=== PATIENT | male | born 1975 | race Caucasian/White ===

== ENCOUNTER 2020-10-17 07:20 | Outpatient (CLI) | payer MEDICARE, MEDICAID, SELFPAY | END 2020-10-17 07:21 | disposition home or self-care (01) | DX: H90.3 Sensorineural hearing loss, bilateral (principal) | CPT/HCPCS: 92557; 92567 ==

== ENCOUNTER 2021-10-22 09:08 | Outpatient (CLI) | payer MEDICARE, MEDICAID, SELFPAY | END 2021-10-22 09:09 | disposition home or self-care (01) | LOC: ANHAUDIO 09:09 | PROVIDERS: Visit Provider Family Medicine | DX: H91.93 Unspecified hearing loss, bilateral (principal) | CPT/HCPCS: 99199 ==

== ENCOUNTER 2021-11-28 10:42 | Outpatient (CLI) | payer MEDICARE, MEDICAID, SELFPAY | END 2021-11-28 10:43 | disposition home or self-care (01) | LOC: ANHAUDIO 10:42 | PROVIDERS: Visit Provider Family Medicine | DX: H91.93 Unspecified hearing loss, bilateral (principal) | CPT/HCPCS: 92557; 92567 ==

== ENCOUNTER 2022-12-08 08:01 | Outpatient (CLI) | payer MEDICARE, MEDICAID, SELFPAY | END 2022-12-08 08:02 | disposition home or self-care (01) | LOC: ANHAUDIO 08:02 | PROVIDERS: PCP Family Medicine; Visit Provider Family Medicine | DX: H90.3 Sensorineural hearing loss, bilateral (principal) | CPT/HCPCS: 92557; 92567 ==

== ENCOUNTER 2023-12-10 08:09 | Outpatient (CLI) | payer MEDICARE, MEDICAID, SELFPAY | END 2023-12-10 08:10 | disposition home or self-care (01) | LOC: ANHAUDIO 08:09 | PROVIDERS: PCP Family Medicine; Visit Provider Family Medicine | DX: H90.3 Sensorineural hearing loss, bilateral (principal) | CPT/HCPCS: 92557; 92567 ==

== ENCOUNTER 2025-01-02 09:03 | Outpatient (CLI) | payer MEDICARE, MEDICAID, SELFPAY ==
--- OUTSIDE RECORDS SUMMARY | 2025-01-02 09:16 | XMS_ITS | Clinical Summary ---
Author Organization [facility] Address [address] [address] Care Team Providers Care Insurance Coordinator Name Role Phone Venkatesh Camargo MD Primary Care Provider [phone] Source Comments [facility],non-owned Affiliates and Associated Physician Practices is amultiple site organization consisting of ambulatory clinics and hospital sitesin [place], [place], [place] and [place]. This disclosure is being madepursuant to the Care Everywhere program and may not contain all information available regarding this patient. Last updated 18.[facility] Allergies Active Allergy Reactions Criticality Noted Date Comments Sulfa Drugs Urticaria Medium 04/23/2010 Sulfamethoxazole W-Trimethoprim Urticaria Medium 04/01 Tuberculin Unknown 01/14/2018 Medications * Be aware that medications may not be up to date on this document. Alwaysverify current medications with the patient. metoprolol succinate XL 24hr (TOPROL XL) 100 MG tablet Take 2 (two) tablets by mouth once daily 03/10/20 11 Active risperiDONE (RISPERDAL) 0.5 MG tablet Take 1 (one) tablet by mouth 2 times daily Active fluticasone propionate (FLONASE) 50 MCG/ACT nasal spray Active sertraline (ZOLOFT) 100 MG tablet Take 2 (two) tablets by mouth once daily Active Vitamin D, Cholecalciferol, 1000 UNITS CAPS Take 1 (one) capsule by mouth T, TH, SAT, SUN Active cetirizine (ZYRTEC) 10 MG tablet Take 1 (one) tablet by mouth once daily Active sodium chloride (OCEAN; BABY AYR) 0.65 % nasal spray [place] 1 (one) spray into each nostril as needed for Dry Nose Active Acetaminophen 325 MG CAPS Take 650 mg by mouth once daily as needed Active busPIRone (BUSPAR) 10 MG tablet 08/13/19 22 Active penicillin v potassium (VEETIDS) 500 MG tablet 06/25/19 22 Active sacubitril-valsart an (Entresto) 49-51 MG tabletIndications: Presence of cardiac pacemaker BY MOUTH TAKE 1 TABLET AT 7AM & 4PM30 DAYS ONLY HOME MUST ASK FOR REFILLS 180 tablet 3 01/05/20 24 Active dapagliflozin propanediol (Farxiga) 10 MG tablet BY MOUTH TAKE 1 TABLET AT 7AM *30 DAY RX* HOME MUST ASK FOR REFILLS 90 tablet 3 01/05/20 24 Active Eliquis 5 MG tabletIndications: Presence of cardiac pacemaker BY MOUTH TAKE 1 TABLET AT 7AM AND 8PM 180 tablet 3 08/23/19 25 Active predniSONE (Deltasone) 10 MG tablet 02/23/20 23 Active metoprolol tartrate IR (Lopressor) 100 MG tablet Take 1 (one) tablet by mouth once daily Active HYDROcodone-acetam inophen ([place]) 5-325 MG tablet Take 1 (one) tablet by mouth every 8 hours as needed 05/30/20 23 Active VITAMIN D PO Take by mouth. Active furosemide (Lasix) 20 MG tabletIndications: Presence of cardiac pacemaker BY MOUTH TAKE 1 TABLET AT 7AM PFHAYES 31 tablet 5 12/23/19 25 Active spironolactone (Aldactone) 25 MG tabletIndications: Nonischemic cardiomyopathy (HCC),Hypertension , unspecified type BY MOUTH TAKE 1/2 TABLET (12.5MG) AT 7AM 16 tablet 5 12/23/19 25 Active furosemide (Lasix) 20 MG tabletIndications: Presence of cardiac pacemaker Take 1 (one) tablet by mouth once daily 90 tablet 3 01/11/20 24 025 Discontinued spironolactone (Aldactone) 25 MG tabletIndications: Nonischemic cardiomyopathy (HCC),Hypertension , unspecified type Take 0.5 (one-half) tablet by mouth once daily 45 tablet 3 01/11/20 24 025 Discontinued Active Problems Problem Noted Date Diagnosed Date Other fatigue 07/27/2019 Assessment & Plan (07/27/2019 3:29 PM MITTEN STITCHER): Follow up with PCP, thyroid, anemia, CPAP titration. Nonischemic cardiomyopathy 02/04/2019 Biventricular automatic impl antable cardioverter defibrillator in situ 05/26/2018 Overview (05/26/2018): Medtronic VDD pacer PG was removed and the system was upgraded to a Medtronic BIV ICD ,using the normally functioning existing atrial portion/reciptacle of VDD lead just for sensing on 05-26-2018. Important note: The patient BIV ICD has atrial lead that is only able to sense . It does not have the ability to pace( using atrial portion on an existing VDD lead). In order to properly sense atrial activity, the LV pacing timing should only be up to 20 ms ahead of RV pacing timing. We tested during the procedure and earlier left ventricular pacing would cause atrial malsensing. Assessment & Plan (2020 10:36 AM CDT): ICD interrogation today showed LV lead impedance >3000 ohms and loss of LV capture. Extensive lead testing was performed, and LV pacing vector was changed to LV4 to RV coil with successful capture at 2 Volts @ 1 ms. Device programmed to ensure adequate safety margin. Atrial lead is a VDD lead implanted in 2004 and used solely for sensing. Presenting rhythm is ventricular-paced with underlying junctional rhythm. Right ventricular lead is functioning normally. Device has approximately 3 years of remaining battery longevity. After discussion with patient and with Dr. Vance Peters, plan to monitor ICD function closely. Will likely need both atrial lead revision for atrial pacing in the presence of junctional rhythm and LV lead revision due to probable lead fracture. HTN (hypertension) 03/16/2018 ADHD (attention deficit hyperactivity disorder) 03/16/2018 Unspecified mood (affective) disorder 03/16/2018 Paroxysmal atrial tachycardia 03/12/2018 CHB (complete heart block) 03/12/2018 Paroxysmal atrial fibrillation 03/12/2018 Assessment & Plan (07/27/2019 3:26 PM MITTEN STITCHER): Stable, warfarin and metoprolol. S/P VSD repair 03/12/2018 Non-rheumatic tricuspid valve insufficiency 02/28 Overview (03/18/2018): Echo on 01-14-2018 showed: The left ventricular systolic function is globally moderately reduced.The left ventricular ejection fraction is estimated at 30 %.There is distolic dysfunction, grade cannot be determined.There is evidence for increased left atrial pressure.RV systolic function mildly reduced.S' 8cm/s, TAPSE 1.2 cm .RVSP estimated at 49 mmHg.There is moderate to severe TR. Echo on 01-14-2018 showed: Technically difficult study; contrast is not utilized.- Rhythm is sinus. - Increased left ventricular wall thickness consistent with concentric hypertrophy. Mildly enlarged left ventricular cavity size. There is paradoxic motion of the septum as well as a septal bounce; possible related to prior cardiac surgery or paced rhythm. Regional wall motion abnormalities difficult to assess without contrast. Ejection fraction is estimated to be 30%; consider contrast images for more accurate LV EF assessment.- Indeterminate diastolic function.- Normal right ventricular size and systolic function. RV wire present. - Normal right ventricular systolic pressure; estimated RVSP 27mmHg (may be underestimated in setting of severe TR). IVC normal size with respiratory variation. - Left atrial size is mildly enlarged. Right atrial size is normal. - Aortic valve structure is not well visualized; most likely trileaflet valve. No aortic regurgitation. No aortic stenosis. - Normal mitral valve structure and velocities. Mild mitral regurgitation. No mitral stenosis. - Normal tricuspid valve structure. Severe tricuspid regurgitation. - Normal pulmonary valve structure and velocities. Mild pulmonary insufficiency. - Normal pericardium. - Normal aortic root. Assessment & Plan (07/27/2019 3:26 PM MITTEN STITCHER): Medical management. Chronic systolic congestive heart failure 2017 Overview (04/02/2018): 100% RV paced rhythm . Echo of : EF 40%. Echo on 09-05-2015 :EF 50% . Echo of 05-27-2017 : EF 45%. Echo of 01-14-2018 : EF 30%. Echo of 03-18-2018 : EF 30% along with severe TR and mild MR. Assessment & Plan (07/27/2019 3:26 PM MITTEN STITCHER): NICM: Chronic Diastolic and Systolic Biventricular Heart Failure: Stable on Exam today. Continue current regimen. Add aldactone 12.5mg daily check BMP in one week. Continue lisinopril and Metoprolol. Follow up with Dr. Mello in 3 months. SOAKER HIDES-d interrogated, rate turned down to 70 from 80. 100% in atrium, 100% SOAKER HIDES pacing, 76.2 effective SOAKER HIDES pacing prior to programming changes. 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 Kyphosis 11/05/2009 CAD in [place] artery Encounters Date Type Department Care Team Description 12/28/2024 Telephone [facility] - Cardiology [address] [facility], [address] [address] Gio Mcgill Refill Request 12/22/2024 Refill [facility] - Cardiology [address] [facility], [address] [address] Vance Peters MD Refill Request 11/23/2024 Refill [facility] - Cardiology [address] [facility], [address] [address] Sydnie Stallworth MD Refill Request 11/09/2024 Telephone [facility] - Centralized Scheduling [address] [place] [address] Sydnie Stallworth MD Appointment 11/03/2024 3:00 PM CDT - 11/03/2024 11:59 PM CDT Hospital Encounter [facility] CAT SCAN [address] [place] [address] Ozzie Jack MD Discharge Disposition: Home or Self Care 11/03/2024 Travel 10/25/2024 1:00 PM CDT Office Visit [facility] - Cardiothoracic Surgery [address] [facility] [place] [phone] Ozzie Jack MD Congenital anomaly of heart (HCC) (Primary Dx) 10/25/2024 Travel 10/05/2024 9:40 AM CDT Office Visit [facility] - Cardiology [address] [facility], [facility] [address] [place] [phone] Vance Peters MD CHB (complete heart block) (HCC) (Primary Dx) 10/05/2024 Travel from Last 3 Months Immunizations Immunization Administration Dates Next Due INFLUENZA VACCINE, TRIV. (AF LURIA, FLUZONE TRIVALENT; 6MO+) (IIV3) 03/10/2014,02/01/2013 Family History Relation Name Status Comments Mother Alive Social History Tobacco Use Types Packs/Day Years Used Date Smoking Tobacco: Never Smokeless Tobacco: Never Tobacco Cessation:Counseling Given: No Alcohol Use Standard Drinks/Week Comments No 0 (1 standard drink = 0.6 oz pur e alcohol) Sex and Gender Information Value Date Recorded Sex Assigned at Not on file Legal Sex Male 5:33 AM MITTEN STITCHER Gender Identity Not on file Sexual Orientation Not on file Occupation Industry Job Start Date Job End Date disabled Not on file Not on file Not on file Last Filed Vital Signs Vital Sign Reading Time Taken Comments Blood Pressure 97/66 10/25/2024 12:52 PM CDT Pulse 56 10/25/2024 12:52 PM CDT Temperature 36.7 C (98 F) 10/25/2024 12:52 PM CDT Respiratory Rate 16 05/04/2019 3:30 PM MITTEN STITCHER Oxygen Saturation 98% 10/25/2024 12: 52 PM CDT Inhaled Oxygen Concentration - - Weight 104.1 kg (229 lb 9.6 oz) 025 12:52 PM CDT Height 170.2 cm (5' 7) 10/25/2024 12:5 2 PM CDT Body Mass Index 35.96 10/25/2024 12:52 PM CDT Plan of Treatment Upcoming Encounters Date Type Department Care Team (Late st Contact Info) Description 01/04/2025 1:00 AM CDT Clinical Support [facility] - Cardiology [address], [address] [address] 02/15/2025 2:00 PM CDT Ancillary Procedure [facility] - Echosonography [address], [address] [address] 04/05/2025 1:00 AM MITTEN STITCHER Clinical Support [facility] - Cardiology [address], [address] [address] 05/17/2025 10:20 AM MITTEN STITCHER Office Visit [facility] - Cardiology [address], [address] [address] Sydnie Stallworth MD [address] [address] 07/05/2025 1:00 AM MITTEN STITCHER Clinical Support [facility] - Cardiology [address], [address] [address] 10/04/2025 1:00 AM CDT Clinical Support [facility] - Cardiology [address], [address] [phone] Health Maintenance Due Date Last Done Comments COLOGUARD (AGES 45-75) - COLON CA SCREENING 1977 COLON MONITORING 1977 COLONOSCOPY - COLON CA SCREENING 1977 CT COLONOGRAPHY - COLON CA SCREENING 1977 Colorectal Cancer Screening 1977 FIT - COLON CA SCREENING 1977 FLEX SIG - COLON CA SCREENING 1977 MEDICARE AWV 12 MONTHS 1977 HIV SCREENING 1992 HEPATITIS C SCREENING 12/02/1995 DTAP/TDAP/TD VACCINES (1 - Tdap) 1996 HEPATITIS B VACCINE (1 of 3 - 19+ 3-dose series) 1996 PNEUMOCOCCAL VACCINE (1 of 2 - PCV) 1996 COVID-19 VACCINE (1 - season) 2024 DEPRESSION SCREENING 05/31/2024 SCREENING FOR DIABETES 10/05/2024 9, 05/26/2018, 01/14/2018, Additional history exists INFLUENZA VACCINE (#1) 2025 03/10/2014, 2012 ZOSTER VACCINE (1 of 2) 12/07/2027 HIB VACCINE Aged Out No longer eligi ble based on patient's age to complete this topic HPV VACCINE Aged Out No longer eligi ble based on patient's age to complete this topic MENINGOCOCCAL (Group B) VACCINE SHARED DECISION-MAKING Aged Out No longer eligible based on patient's age to complete this topic MENINGOCOCCAL GROUPS A/C/Y/W VACCINE Aged Out No longer eligible based on patient's age to complete this topic Medical Devices Implanted Type Area Watch Repairer Device Identifier Shelf Expiration Date Model / Serial / Lot Lead Attain Perfrma Quadripol - [id number] Implanted:Qty: 1 on 05/26/2018 by Aruna Zamora MD at [facility] Left: Chest Medtronic Cardiac Surgical 02/08/2020 [id number] / [id number] / Lead Sq Scr Pace 62cm Dxmthsn Na Phos - [id number] Implanted:Qty: 1 on 05/26/2018 by Aruna Zamora MD at [facility] Left: Chest Medtronic Inc 01/21/2020 [id number] / [id number] / Dev Quad Welt Rougher-D Claria Mri Df4 - [id number] Implanted:Qty: 1 on 05/26/2018 by Aruna Zamora MD at [facility] Left: Chest Medtronic Inc 05/27/2019 [id number] / [id number] / Procedures Procedure Name Priority Date/Time Associated Diagnosis Comments CT CHEST WO CONTRAST Routine 11/03/2024 3:38 PM CDT Congenital anomaly of heart (HCC) CARDIAC PROCEDURE ORDER 10/13/2024 OR ICD DEVICE PROGR EVAL MULT Routine 10/05/2024 4:08 PM CDT CHB (complete heart block) (HCC) CARDIAC PROCEDURE ORDER 10/05/2024 BASIC METABOLIC PANEL (CALCIUM TOTAL) STAT 05/04/2019 9:18 AM MITTEN STITCHER CAD in [place] artery from Last 3 Months or Most Recently Relevant to Health Maintenance Results * CT Chest Wo Contrast (11/03/2024 3:38 PM CDT) Anatomical Region Laterality Modality Chest Computed Tomogra phy 11/03/2024 3:53 PM CDT Impressions 11/03/2024 3:56 PM CDT Impression: 1.Mild cardiomegaly and pulmonary congestion. 2.Otherwise no acute process in the chest. 3.Partially visualized cholelithiasis. > Interpreting Provider: Laurent Cedillo on 11/03/2024 3:56 PM Narrative 11/03/2024 3:56 PM CDT PROCEDURE: CT CHEST WO CONTRAST, DATE/TIME OF EXAM: 11/03/2024 3:38 PM, LOCATION [facility] INDICATION: Q24.9: Congenital anomaly of heart (HCC) ADDITIONAL CLINICAL INFORMATION: Ordering Provider Reason For Exam: Technologist Note: Additional: COMPARISON: None. TECHNIQUE: CT of the chest was performed without contrast according to standard protocol. Findings: Evaluation of visceral and vascular structures is degraded due to lack of intravenous contrast administration. Lower Neck and Axillae: Cardiac device in the left chest wall with leads extending into the right atrium, right ventricle and coronary sinus. Lungs: Mild bilateral dependent atelectasis is present. Mild pulmonary congestion. No suspicious pulmonary nodules are identified. No pleural fluid or pneumothorax is present. Heart and Pericardium: Mild cardiomegaly without pericardial fluid or thickening. Partially visualized probable epicardial pacing leads noted. Mediastinum and Rehana: No enlarged lymph nodes are present. Thoracic Vasculature: No vascular abnormality is present. Bones and Chest Wall: Bone windows demonstrate no suspicious lytic or blastic lesions. The visible osseous structures are intact. Degenerative changes are seen in the spine. Sternotomy wires in place. Asymmetric left gynecomastia. Upper Abdomen: Partially visualized cholelithiasis. Partially visualized fatty atrophy of the pancreas. Otherwise the remaining visible portions of the upper abdominal organs are normal. Procedure Note Laurent Cedillo MD - 11/03/2024 PROCEDURE: CT CHEST WO CONTRAST, DATE/TIME OF EXAM: 11/03/2024 3:38 PM, LOCATION [facility] INDICATION: Q24.9: Congenital anomaly of heart (HCC) ADDITIONAL CLINICAL INFORMATION: Ordering Provider Reason For Exam: Technologist Note: Additional: COMPARISON: None. TECHNIQUE: CT of the chest was performed without contrast according to standard protocol. Findings: Evaluation of visceral and vascular structures is degraded due to lackof intravenous contrast administration. Lower Neck and Axillae: Cardiac device in the left chest wall with leads extending into theright atrium, right ventricle and coronary sinus. Lungs: Mild bilateral dependent atelectasis is present. Mild pulmonarycongestion. No suspicious pulmonary nodules are identified. No pleural fluid or pneumothorax is present. Heart and Pericardium: Mild cardiomegaly without pericardial fluid or thickening. Partially visualized probable epicardial pacing leads noted. Mediastinum and Rehana: No enlarged lymph nodes are present. Thoracic Vasculature: No vascular abnormality is present. Bones and Chest Wall: Bone windows demonstrate no suspicious lytic or blastic lesions. The visible osseous structures are intact. Degenerative changes are seen inthe spine. Sternotomy wires in place. Asymmetric left gynecomastia. Upper Abdomen: Partially visualized cholelithiasis. Partially visualized fatty atrophyof the pancreas. Otherwise the remaining visible portions of the upper abdominal organs are normal. Impression: 1.Mild cardiomegaly and pulmonary congestion. 2.Otherwise no acute process in the chest. 3.Partially visualized cholelithiasis. > Interpreting Provider: Laurent Cedillo on 11/03/2024 3:56 PM us Ozzie Jack MD CT ORDERABLES Final Result * CARDIAC PROCEDURE ORDER (10/13/2024) Only the most recent of2 resultswithin the time period is included. Narrative 10/13/2024 Ordered by an unspecified provider. us Scanned Document CARDIAC SERVICES ORDERABLES Fin al Result * OR ICD DEVICE PROGR EVAL MULT (10/05/2024 4:08 PM CDT) Narrative Vance Peters MD - 10/05/2024 4:08 PM CDT Vance Peters MD 10/05/2024 4:09 PM The device is a Medtronic brand BiV ICD. Model: Tamir [employer] MRI Implanted on : 05/26/2018 Battery life: 7 months Leads: Atrial lead: Capture threshold (mA): 0.25 @ 0.4ms Impedance: 988 ohms Programmed 0.5 @ 0.4ms (Increased to 0.75 @ 0.4ms) RV lead R waves: paced mV Capture threshold (mA): 0.5 @ 0.4ms Impedance: 399 ohms Programmed 2 @ 0.4 ms, sensitivity 2.0 mV LV lead - off Episodes: none Pacing [place]: RA: 100% RV/LV: 100% Programming: Mode: DDDR Lower rate: 70 bpm Upper rate: 130 bpm AV delay: Sensed/Paced = 120/150 Therapies: VF Zone > 200 bpm - treated with 35 J x 6 VT Zone > 170 bpm - monitor only Vance Peters MD PROCEDURE/MINOR SURGICAL ORDERAB LES Final Result * (ABNORMAL) BASIC METABOLIC PANEL (CALCIUM TOTAL) (05/04/2019 9:18 AM [facility]) BUN 14 7 - 26 mg/dL 05/04/2019 9:59 AM [facility] Creatinine 1.1 0.6 - 1.2 mg/dL 05/04/2019 9:59 AM [facility] Sodium 142 136 - 145 mmol/L 05/04/2019 9:59 AM [facility] Potassium 4.4 3.5 - 4.5 mmol/L 05/04/2019 9:59 AM [facility] Chloride 109(H) 98 - 107 mmol/L 05/04/2019 9:59 AM [facility] CO2 23 22 - 29 mmol/L 05/04/2019 9:59 AM [facility] Glucose 94 70 - 115 mg/dL 05/04/2019 9:59 AM [facility] Calcium 9.4 8.4 - 10.2 mg/dL 05/04/2019 9:59 AM [facility] Anion Gap 14 8 - 18 05/04/2019 9:59 AM [facility] BUN/Creatinine Ratio 13 7 - 23 05/04/2019 9:59 AM [facility] Osmolality Calculated 294 270 - 300 mOsm/kg 05/04/2019 9:59 AM [facility] eGFR >60 >60 mL/min/1.7 3 m2 05/04/2019 9:59 AM [facility] Blood BLOOD SPECIMEN / Unknown Venipuncture / Unknown 05/04/2019 9:18 AM MITTEN STITCHER 05/04/2019 9:31 AM [facility] Alverto Colin MD LAB - CHEMISTRY ORDERABLES Final Result [facility] [address] [phone] from Last 3 Months or Most Recently Relevant to Health Maintenance [place] [address] MEDICARE [place] [address] MEDICARE [place] - [place] Advance Directives * Full Code (Latest Code Status on File) Date Activated Date Inactivated Comments 05/26/2018 4:57 PM 05/27/2018 12:08 PM * Full Code Date Activated Date Inactivated Comments 01/14/2018 2:19 PM 01/14/2018 8:16 PM Care Teams Insurance Coordinator Relationship Specialty Start Date End Date Venkatesh Camargo MD [address] [place] [phone] PCP - General 11/29/17
== END 2025-01-02 09:04 | disposition home or self-care (01) ==
LOC: ANHAUDIO 09:04
PROVIDERS: PCP Family Medicine; Visit Provider Family Medicine
DX: H90.3 Sensorineural hearing loss, bilateral (principal)
CPT/HCPCS: 92557; 92567